=== PATIENT | male | born 1960 | race Caucasian/White ===

== ENCOUNTER 2023-12-07 13:55 | Outpatient (RCR) | payer MEDICARE, OTHER | END 2023-12-26 | disposition home or self-care (01) | LOC: CARDREHAB | DX: Z48.812 Encounter for surgical aftercare following surgery on the circulatory system (principal); I21.3 ST elevation (STEMI) myocardial infarction of unspecified site; Z98.61 Coronary angioplasty status ==

== ENCOUNTER 2023-12-27 14:45 | Outpatient (RCR) | payer MEDICARE, OTHER | END 2024-01-26 | disposition home or self-care (01) | LOC: CARDREHAB | DX: Z48.812 Encounter for surgical aftercare following surgery on the circulatory system (principal); Z95.5 Presence of coronary angioplasty implant and graft; I25.2 Old myocardial infarction ==